=== PATIENT | female | born 1995 | race Caucasian/White ===

== ENCOUNTER 2022-11-17 16:10 | Outpatient (CLI) | payer OTHER, SELFPAY ==
--- NOTE | ~2022-11-17 | US_ITS ---
EXAMINATION: US OB <= 14 weeks fetus DATE: 11/17/2022 17:00 INDICATION: TECHNIQUE: Real-time pelvic ultrasound utilizing both a transvaginal and transabdominal probe was pe rformed. The interpreting radiologist was not present for the study. COMPARISON: None. FINDINGS: The uterus measures 15.3 x 6.7 x 9.7 cm. There is an intrauterine gestational sac. A yolk sac and fe karlene pole are identified. The crown rump length measures 5.6, which correlates with an estimated gesta tional age of 12 weeks and 2 days. heart motion is identified measuring 166 beats per minute (b pm) by M-mode Doppler. The right ovary measures 3.2 x 2.2 x 1.5 cm. 1.5 cm hypoechoic likely corpus luteum cyst in the right ovary The left ovary measures 2.6 x 1.9 x 1.3 cm. There is no free fluid in the pelvis. IMPRESSION: 1. Single living fetus with heart rate of 166 bpm. 2. Gestational age by ultrasound of 12 weeks 2 day(s) +/- 1 week and 1 day with ultrasound estimated date of delivery (JENNIFER) of 05/30/2023. Reviewed, dictated and finalized at location A. IMPRESSION: 1. Single living fetus with heart rate of 166 bpm. 2. Gestational age by ultrasound of 12 weeks 2 day(s) +/- 1 week and 1 day wit h ultrasound estimated date of delivery (JENNIFER) of 05/30/2023.
== END 2022-11-17 16:11 | disposition home or self-care (01) ==
PROVIDERS: PCP Family Medicine; Visit Provider Nurse Practitioner Family
DX: Z32.01 Encounter for pregnancy test, result positive (principal); Z3A.12 12 weeks gestation of pregnancy
CPT/HCPCS: 76801

== ENCOUNTER 2022-12-27 16:38 | Outpatient (CLI) | payer OTHER, SELFPAY ==
--- NOTE | ~2022-12-27 | US_ITS ---
EXAMINATION: US OB /maternal detail DATE: 12/27/2022 17:24 INDICATION: Routine care. TECHNIQUE: Real-time ultrasound of the pelvis was performed. COMPARISON: Ultrasound 11/17/2022 FINDINGS: There is a single living fetus in vertex presentation. The placenta is posterior, 3.4 cm from the ce rvix. heart rate is 148 beats per minute (bpm). The amniotic fluid volume is subjectively leonarda l. The following biometric data were obtained: Biparietal diameter (BPD): 3.9 cm; head circumference (HC): 14.5 cm; abdominal circumference (AC): 12 .5 cm; femur length (FL): 2.3 cm. These measurements are concordant. Estimated weight is 198 g +/- 30 g, which correlates with the 19th percentile when 05/30/23 is used as estimated date of delivery. As single measurements, these parameters are each equal to the following estimated gestational ages: BPD: 17 weeks 5 days. HC: 17 weeks 5 days. AC: 18 weeks 1 days. FL: 16 weeks 5 days. estimated gestational age based solely on measurements from this exam is 17 weeks 4 days +/- 1 weeks 2 days. The cerebral ventricles, cerebellum, cisterna magna, nuchal fold, and visualized portions of the spin e are normal. The heart is normal. The diaphragm, stomach, kidneys, and bladder are normal. There are two umbilical arteries to yield a 3-vessel cord. The cord insertion is normal. IMPRESSION: 1. Single living fetus in vertex presentation. 2. Estimated weight is 198 g +/- 30 g, which correlates with the 19th percentile when 05/30/23 is used as estimated date of delivery. This date was set by ultrasound on 11/17/2022. 3. Normal anatomic survey. Reviewed, dictated and finalized at location E. IMPRESSION: 1. Single living fetus in vertex presentation. 2. Estimated weight is 198 g +/- 30 g, which correlates with the 19th pe rcentile when 05/30/23 is used as estimated date of delivery. This date was set by ultrasound on 11/17/2022. 3. Normal anatomic survey.
== END 2022-12-27 16:39 | disposition home or self-care (01) ==
PROVIDERS: PCP Family Medicine; Visit Provider Nurse Practitioner Family
DX: Z34.82 Encounter for supervision of other normal pregnancy, second trimester (principal); Z3A.17 17 weeks gestation of pregnancy
CPT/HCPCS: 76805

== ENCOUNTER 2023-01-26 15:38 | Outpatient (CLI) | payer OTHER, SELFPAY ==
--- NOTE | ~2023-01-26 | US_ITS ---
EXAMINATION: US OB follow up DATE: 01/26/2023 16:48 INDICATION: Routine care. TECHNIQUE: Real-time ultrasound of the pelvis was performed. COMPARISON: Ultrasound 12/27/2022, 11/17/2022 FINDINGS: There is a single living fetus in vertex presentation. The placenta is posterior, 4.7 cm from the ce rvix. heart rate is 157 beats per minute (bpm). The amniotic fluid volume is subjectively leonarda l. The following biometric data were obtained: Biparietal diameter (BPD): 5.1 cm; head circumference (HC): 19.2 cm; abdominal circumference (AC): 17 .2 cm; femur length (FL): 3.7 cm. These measurements are concordant. Estimated weight is 455 g +/- 68 g, which correlates with the 23rd percentile when 05/30/23 is used as estimated date of delivery. As single measurements, these parameters are each equal to the following estimated gestational ages: BPD: 21 weeks 2 days. HC: 21 weeks 3 days. AC: 22 weeks 1 days. FL: 21 weeks 4 days. estimated gestational age based solely on measurements from this exam is 21 weeks 1 days +/- 1 weeks 4 days. IMPRESSION: 1. Single living fetus in vertex presentation. 2. Estimated weight is 455 g +/- 68 g, which correlates with the 23rd percentile when 05/30/23 is used as estimated date of delivery. This date was set by ultrasound on 11/17/2022. Reviewed, dictated and finalized at location A. IMPRESSION: 1. Single living fetus in vertex presentation. 2. Estimated weight is 455 g +/- 68 g, which correlates with the 23rd pe rcentile when 05/30/23 is used as estimated date of delivery. This date was set by ultrasound on 11/17/2022.
== END 2023-01-26 15:39 | disposition home or self-care (01) ==
PROVIDERS: PCP Family Medicine; Visit Provider Nurse Practitioner Family
DX: Z34.82 Encounter for supervision of other normal pregnancy, second trimester (principal); Z3A.21 21 weeks gestation of pregnancy
CPT/HCPCS: 76816